=== PATIENT | male | born 1965 | race Caucasian/White ===

== ENCOUNTER 2021-11-20 16:48 | Inpatient (IN) ==
[2021-11-20] MEDS ORDERED: Acetaminophen 325 MG TABLET PO PRN (21:56)
[2021-11-20] MEDS ORDERED: Ondansetron 4 MG/2 ML VIAL IVP PRN (21:56)
[2021-11-20] MEDS ORDERED: Naloxone 0.4 MG/ML INJ IVP PRN (21:56)
[2021-11-21 03:31] LABS: Basophils # 0.1 K/mcL (0.0-0.2); Basophils % 0.6 %; Eosinophils # 0.2 K/mcL (0.0-0.6); Eosinophils % 2.1 %; Hematocrit 42.7 % (37.5-50.1); Hemoglobin 14.5 g/dL (12.9-16.9); Immature Granulocytes % 0.3 % (0-4); Lymphocytes # 2.9 K/mcL (0.6-4.6); Mean Corpuscular Hemoglobin 32.7 pg (28.0-33.3); Mean Corpuscular Volume 96.2 fL (83.0-100.0); Mean Platelet Volume 11.4 fL (9.4-12.4); Monocytes # 0.5 K/mcL (0.0-1.3); Monocytes % 5.8 %; Neutrophils # 4.2 K/mcL (1.6-8.9); Platelet Count 202 K/mcL (140-400); Red Blood Count 4.44 M/mcL (4.19-5.50); Red Cell Distribution Width 12.1 % (11.5-14.5); Segmented Neutrophils % 54.2 %; White Blood Count 7.7 K/mcL (4.3-11.1)
[2021-11-21 03:36] LABS: Activated Partial Thrombo Time 29.8 Seconds (26.0-36.0)
[2021-11-21 04:14] LABS: Alanine Aminotransferase 23 Units/L (7-52); Albumin 3.8 g/dL (3.5-5.7); Albumin/Globulin Ratio 1.7 (1.1-2.2); Alkaline Phosphatase 33 Units/L (34-104); Aspartate Amino Transferase 13 Units/L (13-39); BUN/Creatinine Ratio 17 (6-26); Bilirubin,Direct 0.1 mg/dL (0.0-0.2); Bilirubin,Indirect 0.1 mg/dL (0.0-1.0); Bilirubin,Total 0.2 mg/dL (0.3-1.0); Blood Urea Nitrogen 15 mg/dL (6-20); Calcium 8.9 mg/dL (8.6-10.3); Carbon Dioxide 22 mEq/L (23-29); Chloride 107 mEq/L (98-107); Chol/HDL Ratio 4.8 (0-4.9); Cholesterol 167 mg/dL (< 200); Globulin 2.2 g/dL (2.4-3.5); Glucose 100 mg/dL (70-105); HDL Cholesterol 35 mg/dL (40-59); LDL Cholesterol,Calculated 98 mg/dL (< 100); Osmolality,Calculated 287 (280-300); Phosphorous 4.2 mg/dL (2.7-4.5); Potassium 4.1 mEq/L (3.5-5.1); Sodium 138 mEq/L (136-145); Thyroid Stimulating Hormone 3.874 mcIU/mL (0.340-5.600); Triglycerides 168 mg/dL (< 150); eGFR For African Americans > 60 (> 60); eGFR For Non-African Americans > 60 (> 60)
[2021-11-21] MEDS ORDERED: *HR* LORazepam 2 MG/ML VIAL IVP PRN ×3 (11:28)
[2021-11-21] MEDS ORDERED: Metoprolol XL (24 HR) Succ 25 MG TAB.ER.24H PO SCH (11:30)
[2021-11-21] MEDS ORDERED: *HR* Midazolam HCl 2 MG/2 ML VIAL ONE (15:52)
[2021-11-21] MEDS ORDERED: *HR* FentaNYL (PF) 100 MCG/2 ML VIAL ONE (15:52)
[2021-11-21] MEDS ORDERED: Iopamidol - 370 200 ML INFUS..BTL ONE (15:53)
[2021-11-21] MEDS ORDERED: *HR* Heparin 10,000 UNIT/10 ML VIAL ONE ×2 (15:53→16:10)
[2021-11-21] MEDS ORDERED: Nitroglycerin 1,000 MCG/5 ML VIAL IV ONE (15:53)
[2021-11-21] MEDS ORDERED: 0.9 % Sodium Chloride 2,000 ML ONE (15:53)
[2021-11-21] MEDS ORDERED: Heparin 1,000 UNITS/500 mL 500 ML ONE (15:53)
[2021-11-21] MEDS ORDERED: *HR* Ticagrelor 90 MG TABLET ONE (16:33)
[2021-11-21] MEDS: Folic Acid 1 MG TABLET PO SCH (18:16)
[2021-11-21] MEDS: Aspirin 81 MG TAB.CHEW PO SCH (18:16)
[2021-11-21] MEDS: *HR* Heparin 5,000 UNIT/ML VIAL SQ SCH (18:16)
[2021-11-21] MEDS: Thiamine (B-1) 100 MG TABLET PO SCH (18:16)
[2021-11-22 02:54] LABS: Hematocrit 42.4 % (37.5-50.1); Hemoglobin 14.4 g/dL (12.9-16.9)
[2021-11-22 03:14] LABS: BUN/Creatinine Ratio 17 (6-26); Blood Urea Nitrogen 15 mg/dL (6-20); Troponin I 0.03 ng/mL (< 0.04); eGFR For African Americans > 60 (> 60); eGFR For Non-African Americans > 60 (> 60)
[2021-11-22] MEDS: *HR* Heparin 5,000 UNIT/ML VIAL SQ SCH ×2 (06:16→17:13)
[2021-11-22] MEDS: Metoprolol XL (24 HR) Succ 50 MG TAB.ER.24H PO SCH (10:14)
[2021-11-22] MEDS: *HR* Ticagrelor 90 MG TABLET PO SCH ×2 (10:15→19:25)
[2021-11-22] MEDS: Thiamine (B-1) 100 MG TABLET PO SCH (10:15)
[2021-11-22] MEDS: Folic Acid 1 MG TABLET PO SCH (10:15)
[2021-11-22] MEDS: Aspirin 81 MG TAB.CHEW PO SCH (10:15)
[2021-11-22] MEDS ORDERED: Spironolactone 12.5 MG TABLET PO SCH (12:00)
[2021-11-23] MEDS: *HR* Heparin 5,000 UNIT/ML VIAL SQ SCH (04:31)
[2021-11-23 07:15] VITALS: BP 132/80; PULSE 80; TEMP 98.2; O2SAT 97
[2021-11-23] MEDS: *HR* Ticagrelor 90 MG TABLET PO SCH (08:59)
[2021-11-23] MEDS: Aspirin 81 MG TAB.CHEW PO SCH (08:59)
[2021-11-23] MEDS: Metoprolol XL (24 HR) Succ 50 MG TAB.ER.24H PO SCH (09:00)
[2021-11-23] MEDS: Folic Acid 1 MG TABLET PO SCH (09:00)
[2021-11-23] MEDS: Thiamine (B-1) 100 MG TABLET PO SCH (09:00)
== END 2021-11-23 12:20 | disposition home or self-care (01) | DRG 175 ==
LOC: 3NENU → SUATTDRO 21:34
PROVIDERS: ADMIT Internal Medicine; ATTEND Internal Medicine